=== PATIENT | male | born 1990 | race Hispanic/Latino ===

== ENCOUNTER 2017-06-06 18:46 | Emergency (ER) | payer SELFPAY ==
[~2017-06-06 18:46] MED LIST: ISOVUE-370 76%-LOCM 1 ML ONE
[2017-06-06 19:09] LABS: #Eosinphils 0.2 thou/uL (0.0-0.7); #Lymphocytes 2.4 thou/uL (1.20-3.40); #Monocytes 0.6 thou/uL (0.11-0.59); #Neutrophils 4.7 thou/uL (1.40-6.50); %Basophils 0.6 % (0.0-1.0); %Eosinophils 2.1 % (0.0-10.0); %Monocytes 7.8 % (0.0-10.0); Hematocrit 50.7 % (42.0-52.0); Mean Platelet Volume 6.3 fL (7.4-10.4); Red Blood Cell (RBC) Count 5.87 mill/uL (4.70-6.10); White Blood Cell (WBC) Count 7.9 thou/uL (4.8-10.8)
[2017-06-06 19:31] LABS: ALT (SGPT) 46 U/L (8-55); AST (SGOT) 27 U/L (5-34); Alkaline Phosphatase 88 U/L (40-150); Anion Gap 16 mmol/L (10-20); BUN (Urea Nitrogen) 7 mg/dL (8.9-20.6); Bilirubin, Total 0.5 mg/dL (0.2-1.2); Calc. Creatinine Clearance 0 mL/min (70-130); Calcium 9.4 mg/dL (7.8-10.44); Carbon Dioxide 24 mmol/L (22-29); Chloride 104 mmol/L (98-107); Estimated GFR-MDRD Greater than 90; Globulin 3.5 g/dL (2.4-3.5); Lipase 18 U/L (8-78); Protein, Total 8.4 g/dL (6.0-8.3)
[2017-06-06] MEDS ORDERED: Ketorolac Tromethamine 30 MG/ML VIAL ONE (19:35)
--- NOTE | 2017-06-06 20:03 | CT ---
EXAM: NONCONTRAST HEAD CT 06/06/17 HISTORY: Hemoptysis. Back pain. Shortness of breath. Status post fall from ladder of approximately 20 feet la nding on dirt two hours ago. Loss of consciousness x15 minutes. COMPARISON: None. TECHNIQUE: Noncontrast head CT is performed from skull base to skull vertex. FINDINGS: No parenchymal hemorrhage. No extra-axial hematoma. No midline shift. Basilar cisterns are patent. B rain volume, age appropriate. Cortical cottrell-white matter differentiation is preserved. Ventricle and sulci are patent and symmetric. Calvarium is intact. Adequate aeration of the mastoid air cells. Bi lateral ethmoidal sinus mucosal thickening. IMPRESSION: No intracranial posttraumatic sequela. POS: [facility]
--- NOTE | 2017-06-06 20:07 | CT ---
EXAM: NONCONTRAST CERVICAL SPINE CT 06/06/17 HISTORY: Fall. Posttraumatic injury and pain. Hemoptysis. COMPARISON: None. TECHNIQUE: Noncontrast cervical spine CT is performed in the axial plane. Reformatted images are submitted for interpretation. FINDINGS: There is nonspecific mild fullness of the left and right palatine tonsils. No prevertebral soft tiss ue swelling. No epidural hematoma. No significant central canal stenosis or foraminal narrowing. Ev aluation is limited by technique. The visualized upper mediastinum and lung apices are unremarkable. Coronal reformatted images demonstrate appropriate alignment of the lateral masses of C1 and C2 as w ell as the intra-articular facets. Odontoid process is intact. Sagittal reformatted images demonstrate appropriate alignment. There is appropriate articulation of the intra-articular facets. Spinous processes are intact. Cervical spine vertebral body height is maintained. No fracture. IMPRESSION: 1. No fracture. 2. Nonspecific fullness of the left and right palatine tonsils. Correlate clinically. POS: [facility]
--- NOTE | 2017-06-06 20:34 | CT ---
EXAM: CHEST CT WITH CONTRAST ABDOMEN CT WITH CONTRAST PELVIC CT WITH CONTRAST LIMITED CT OF THE THORACIC AND LUMBAR SPINE 06/06/17 HISTORY: Status post fall from a height of 20 feet. Posttraumatic pain and hemoptysis. COMPARISON: None. FINDINGS: CHEST CT: No mediastinal mass, lymphadenopathy, or hematoma. Heart size is within normal limits. No pericardia l fluid. The thoracic and abdominal aorta have a normal caliber. No periaortic fat stranding. Centra l pulmonary arteries are adequately opacified. Trachea and central bronchi are patent. No masses or consolidation. Dependent atelectatic changes are noted. No pleural effusion or pneumothorax. ABDOMEN CT: Liver, spleen, pancreas, and adrenal glands have appropriate enhancement. No CT evidence of solid or elicia injury. Gallbladder is unremarkable. Symmetric enhancement of the kidneys. Bilaterally, no obstructive uropathy. No mesenteric mass, lymphadenopathy, free air or free fluid. Limited evaluation of the alimentary canal due to lack of oral contrast. No evidence of bowel obstru ction. Normal caliber appendix. Occasional diverticulum in the colon. No diverticulitis. No colonic obstruction. PELVIC CT: No mass, lymphadenopathy, free air or free fluid. The urinary bladder is unremarkable. The bony thorax and bony pelvis do not demonstrate any posttraumatic change. LIMITED CT OF THE THORACIC AND LUMBAR SPINE: The thoracic and lumbar spine vertebral body height is maintained. No fracture. Sclerotic focus in the right iliac bone likely representing a small bone island. IMPRESSION: No posttraumatic sequela in the chest, abdomen or pelvis. Results of the head CT, cervical spine CT, chest/abdominal/pelvic CT discussed with Dr. Jeong, at 7:24 p.m. Code CR POS: [facility]
== END 2017-06-06 19:55 | disposition home or self-care (01) ==
LOC: ERS 18:46
DX: M54.6 Pain in thoracic spine (principal); F17.210 Nicotine dependence, cigarettes, uncomplicated; W11.XXXA Fall on and from ladder, initial encounter
CPT/HCPCS: 70450; 71260; 72125; 74177; 80053; 80307; 83690; 85025; 96374; J1885

== ENCOUNTER 2017-08-17 15:39 | Emergency (ER) | payer SELFPAY | END 2017-08-17 16:33 | disposition left against medical advice (07) | LOC: ERS 15:39 | DX: Z53.21 Procedure and treatment not carried out due to patient leaving prior to being seen by health care provider (principal) ==